=== PATIENT | female | born 1945 | race Caucasian/White ===

== ENCOUNTER 2016-10-25 06:06 | Day surgery (SDC) | payer OTHER ==
[2016-10-20 10:42] VITALS: BMI 22.6
[2016-10-25] MEDS ORDERED: TETRACAINE 0.5% OPHTH SOLN 2 ML BOTTLE ONE (07:14)
[2016-10-25] MEDS ORDERED: LIDOCAINE 1%/EPI 1:100000 (20 ML MULTI DOSE VIAL) ONE (07:14)
[2016-10-25] MEDS ORDERED: POVIDONE-IODINE 5% OPHTHALMIC PREP 30 ML SOLUTION ONE (07:14)
[2016-10-25] MEDS ORDERED: BACITRACIN 3.5 GM OPTHALMIC OINT TUBE ONE (07:14)
[2016-10-25] MEDS ORDERED: PROPOFOL 20 ML ONE ×3 (07:16→08:43)
[2016-10-25] MEDS ORDERED: MIDAZOLAM HCL 2 MG/2 ML SINGLE DOSE VIAL ONE ×2 (07:17)
[2016-10-25] MEDS ORDERED: ceFAZolin SODIUM 1 GM VIAL ONE (08:17)
[2016-10-25] MEDS ORDERED: DEXAMETHASONE SOD PHOSPHATE 4 MG/1 ML VIAL ONE (08:41)
[2016-10-25] MEDS ORDERED: ONDANSETRON 4 MG/2 ML VIAL ONE (08:41)
[2016-10-25] MEDS ORDERED: ONDANSETRON 4 MG/2 ML VIAL IVPUSH PRN (09:01)
[2016-10-25] MEDS ORDERED: LACTATED RINGERS SOLUTION 1,000 ML IV SCH (09:15)
[2016-10-25] MEDS ORDERED: ACETAMINOPHEN 500 MG TABLET (FP) PO PRN (10:01)
[2016-10-25] MEDS ORDERED: oxyCODONE HCL 5 MG TABLET PO PRN (10:03)
[2016-10-25 10:29] VITALS: PULSE 69; TEMP 97.6
[2016-10-25 11:08] VITALS: BP 153/80
--- NOTE | 2016-10-25 15:58 | OP ---
DATE OF OPERATION: 10/25/2016 PREOPERATIVE DIAGNOSIS: Involutional ptosis, right upper lid. POSTOPERATIVE DIAGNOSIS: Involutional ptosis, right upper lid. PROCEDURE: Herbert muscle resection, right upper lid. SURGEON: Kosta Pierce MD ANESTHESIA: Local sedation. COMPLICATIONS: None. ESTIMATED BLOOD LOSS: Less than 1 mL. DESCRIPTION OF PROCEDURE: Patient was brought to the operating room, placed on the operating room table. Vital signs were monitored by Anesthesia. Tetracaine was placed in both eyes. A timeout was performed verifying that it was indeed the right eye that we were operating on. Following which, a frontal nerve block was administered by taking a syringe of Xylocaine 2% with 1:100,000 epinephrine, injecting 1.5 mL along the orbital roof, approximately 35 mm back, aspirating first demonstrate no intravascular injection, and 0.5 mL was injected in the superior eyelid with changing the needle to a 30-gauge needle. Massage was applied gently for hemostasis. The patient was then prepped and draped in usual sterile fashion, exposing both eyes. A 4-0 silk traction suture was passed through the central lid margin, and lid was everted over a Desmarres retractor, and an 8.5-mm resection was desired. Therefore, 4.25 mm above the central dorsal plate, a eduardo was made using a caliber which was checked with a ruled, and then, 6-7 mm nasal and temporal to this, additional singh were made at the same height. A 6-0 silk suture was passed through each of these 3 singh. The 6-0 silk suture was then used to elevate the conjunctivae of Herbert's. First, the forceps were used to distract the conjunctivae from the overlying tissues, bringing Herbert's with it, and afterwards, the 6-0 silk was used to distract the tissues while the lid was everted. Then, the tissues were incorporated with a Putterman clamp, incorporating just above the top of the tarsus and all of the singh that were being elevated with the 6-0 silk. Once the clamp was applied, the muscle tissue within the clamp was then secured by passing a double-arm 5-0 plain suture from temporal to nasal in a mattress fashion, 1.5 mm from the clamp and then incising the tissues within the clamp with a 15 blade, being careful not to cut the 5-0 plain suture, and once the tissue had been resected, closing the resection with the same end of the 5-0 plain suture running it back in a continuous fashion and passing each of the arms temporally through the wound, exiting on the full-thickness eyelet temporally so that there would be no internal knot. The sutures were then tied on the external surface. Bacitracin was placed in the eye, and the patient was then taken to the recovery room in stable condition, following Herbert muscle resection. The traction suture had been removed. There were no complications, and the patient tolerated the procedure well. KOSTA PIERCE M.D. [id number]
--- NOTE | 2016-10-27 15:16 | PATH ---
Surgical Pathology Report Patient Name: ALEXANDER CAZARES [facility]. Rec. #: [id number] /Age/Gender: 1945 (Age: 70) / F Account: [id number] Location: [facility] Taken: 10/25/2016 Received: 10/25/2016 Reported: 10/27/2016 Physicians: Andrez Escalona Specimen(s) Received PTOSIS RIGHT UPPER EYELID Clinical History Ptosis right upper eyelid Final Diagnosis RIGHT UPPER EYELID, PTOSIS REPAIR: BENIGN CONJUNCTIVA WITH FOCI OF CHRONIC INFLAMMATION. Electronically Signed Martin Sage M.D. Gross Description Received in formalin labeled "ptosis right upper eyelid" is a 1.4 x 0.5 cm solorio, irregular skin shave. The epidermal surface is unremarkable. The base is inked green and the specimen is serially sectioned. The specimen is entirely submitted in one cassette. /10/26/2016/10/26/2016
== END 2016-10-25 11:25 | disposition home or self-care (01) ==
LOC: FASU 06:06
PROVIDERS: ATTEND Ophthalmology
PROC: 08BN0ZZ Excision of Right Upper Eyelid, Open Approach (ICD-10-PCS; principal; 2016-10-25 08:21)
DX: H02.401 Unspecified ptosis of right eyelid (principal)
CPT/HCPCS: 88304-TC; 94760